=== PATIENT | male | born 1990 | race Caucasian/White ===

== ENCOUNTER 2019-12-26 14:25 | Emergency (ER) | payer BC ==
[2019-12-26] MEDS ORDERED: Ibuprofen 800 MG TAB ONE (14:47)
--- NOTE | 2019-12-26 16:35 | RAD ---
CHEST TWO VIEWS: Date: 12-26-2019 FINDINGS: The heart is normal in size and the lungs are clear. There is no sign of lobar infiltrate or pneumoth orax. No fluid was seen in the costophrenic angles. Minimal increase in markings behind the heart is probably just due to overlapping tissues. IMPRESSION: No acute findings. POS: HOME
== END 2019-12-26 15:10 | disposition home or self-care (01) ==
LOC: BURERS 14:25
DX: R07.89 Other chest pain (principal); F17.220 Nicotine dependence, chewing tobacco, uncomplicated
CPT/HCPCS: 71046

== ENCOUNTER 2019-12-31 02:56 | Emergency (ER) | payer BC ==
[2019-12-31] MEDS ORDERED: Diazepam 5 MG TAB ONE (03:09)
[2019-12-31] MEDS ORDERED: Guaifenesin DM 100-10/5 ML UDCUP ONE ×2 (03:10→03:12)
[2019-12-31] MEDS ORDERED: Ketorolac Tromethamine 60 MG/2 ML VIAL ONE (03:10)
[2019-12-31 03:32] LABS: Base Excess-Venous 3.1 mmol/L (-2.0 to 3.0); Bicarbonate (HCO3v) 29.1 mmol/L (22.0-28.0); Chloride 102 mmol/L (98-107); Hemoglobin - Calc 13.1 g/dL (14.0-18.0); Potassium 4.2 mmol/L (3.5-5.1); Sodium 142 mmol/L (138-145); T. Carbon Dioxide 30.6 mmol/L (22.0-28.0); vO2 Saturation-calc 41.6 % (60.0-85.0)
[2019-12-31 03:40] LABS: Anion Gap 12 mmol/L (10-20); BUN (Urea Nitrogen) 8 mg/dL (8.9-20.6); Calc. Creatinine Clearance 0 mL/min (70-130); Carbon Dioxide 28 mmol/L (22-29); Chloride 106 mmol/L (98-107); Eosinophils 2 % (0-10); Estimated GFR-MDRD Greater than 90; Glucose 107 mg/dL (70-105); Lymphocytes 22 % (21-51); MDiff Complete? YES; Mean Corpuscular Hemoglobin 28.3 pg (27.0-31.0); Mean Corpuscular Volume 83.3 fL (78.0-98.0); Monocytes 7 % (0-10); Neutrophil 68 % (42-75); Platelet Count 278 thou/uL (130-400); Platelet Morphology Comment Appears Adequate; Potassium 4.3 mmol/L (3.5-5.1); RBC Distribution Width 11.6 % (11.5-14.5); RBC Morphology Normal; Sodium 142 mmol/L (136-145); White Blood Cell (WBC) Count 11.9 thou/uL (4.8-10.8)
[2019-12-31] MEDS ORDERED: Acetaminophen 500 MG TAB ONE (03:41)
--- NOTE | 2019-12-31 07:39 | RAD ---
CHEST 2 VIEWS: Date: 12/31/2019 Comparison made with the 12/26/2019 study. The oscar seem a little more full today bilaterally than they were before. This raises the question of some adenopathy. There is no lobar infiltrate. There might be a little bit of perihilar streaking co mpared to before, but the finding is marginal. There are no effusions. The trachea is midline and the heart is normal in size. There is no vascular congestion or edema. IMPRESSION: Slight increase in hilar prominence over the interval and perhaps minimal perihilar streaking. Viral illnesses can cause this. Further follow-up will be needed depending upon the patient's symptoms. POS: HOME
== END 2019-12-31 03:53 | disposition home or self-care (01) ==
LOC: BURERS 02:56
DX: J98.8 Other specified respiratory disorders (principal); F17.220 Nicotine dependence, chewing tobacco, uncomplicated
CPT/HCPCS: 36415; 71046; 80048; 82330; 82803; 85025; 87804; 96372; J1885

== ENCOUNTER 2020-10-11 22:33 | Emergency (ER) | payer BC, SELFPAY ==
[2020-10-11] MEDS ORDERED: Ibuprofen 200 MG TAB ONE (22:56)
--- NOTE | 2020-10-12 08:00 | RAD ---
CHEST 2 VIEWS: Date: 10/11/2020 Comparison made with prior study of 12/31/2019. The heart size is unchanged. The right hemidiaphragm is slightly more elevated today than before. I u nderstand that there has been surgery and a history of a chest wall mass. No definite pathology is se en today, but it was not visible on the prior study either. In view of the history and symptoms, one might consider an elective CT to reexamine the thorax. At most, there may be some minor increased den sity in the right base just above the diaphragm, which could easily be scarring. No lobar infiltrates or effusions are seen. No obvious bony lesions apparent. IMPRESSION: No definite acute findings, other than slight elevation of the right hemidiaphragm compared to before . Can neither rule-in nor rule-out scarring or a minimal patchy right basilar infiltrate. Consider a follow-up CT exam if symptoms and clinical course dictate. POS: HOME
== END 2020-10-11 23:26 | disposition home or self-care (01) ==
LOC: BURERS 22:33
DX: S29.011A Strain of muscle and tendon of front wall of thorax, initial encounter (principal); S21.101A Unspecified open wound of right front wall of thorax without penetration into thoracic cavity, initial encounter; F17.220 Nicotine dependence, chewing tobacco, uncomplicated; E66.9 Obesity, unspecified
CPT/HCPCS: 71046

== ENCOUNTER 2022-10-11 10:38 | Emergency (ER) | payer SELFPAY | END 2022-10-11 11:18 | disposition home or self-care (01) | LOC: BURERS 10:38 | DX: H10.32 Unspecified acute conjunctivitis, left eye (principal); F17.220 Nicotine dependence, chewing tobacco, uncomplicated | CPT/HCPCS: 99282 ==

== ENCOUNTER 2023-10-12 16:54 | Emergency (ER) | payer OTHER, SELFPAY ==
[2023-10-12] MEDS ORDERED: cloNIDine 0.1 MG TAB ONE (17:10)
[2023-10-12 17:35] LABS: #Basophils 0.1 thou/uL (0.0-0.2); #Eosinphils 0.4 thou/uL (0.0-0.7); #Lymphocytes 2.6 thou/uL (1.20-3.40); #Monocytes 0.7 thou/uL (0.11-0.59); #Neutrophils 7.6 thou/uL (1.40-6.50); %Eosinophils 3.7 % (0.0-10.0); %Lymphocytes 22.9 % (21.0-51.0); %Monocytes 6.3 % (0.0-10.0); %Neutrophils 66.1 % (42.0-75.0); Hematocrit 41.4 % (42.0-52.0); Mean Corpuscular HGB CONC 33.8 g/dL (32.0-36.0); Mean Corpuscular Hemoglobin 27.8 pg (27.0-31.0); Mean Corpuscular Volume 82.5 fl (78.0-98.0); Mean Platelet Volume 7.1 fL (7.4-10.4); Platelet Count 281 10x3/uL (130-400); Red Blood Cell (RBC) Count 5.02 mill/uL (4.70-6.10); White Blood Cell (WBC) Count 11.5 10x3/uL (4.8-10.8)
[2023-10-12 17:53] LABS: ALT (SGPT) 64 U/L (8-55); AST (SGOT) 34 U/L (5-34); Albumin 3.9 g/dL (3.5-5.0); Alkaline Phosphatase 90 U/L (40-110); Anion Gap 13 mmol/L (10-20); BUN (Urea Nitrogen) 12 mg/dL (8.9-20.6); Bilirubin, Total 0.4 mg/dL (0.2-1.2); Calc. Creatinine Clearance 0 mL/min (70-130); Calcium 8.7 mg/dL (7.8-10.44); Carbon Dioxide 24 mmol/L (22-29); Chloride 106 mmol/L (98-107); Estimated GFR 109; Globulin 3.1 g/dL (2.4-3.5); Glucose 161 mg/dL (70-105); Potassium 3.2 mmol/L (3.5-5.1); Sodium 140 mmol/L (136-145)
== END 2023-10-12 18:27 | disposition home or self-care (01) ==
LOC: BURERS 16:54
DX: I10 Essential (primary) hypertension (principal); J20.9 Acute bronchitis, unspecified; F17.220 Nicotine dependence, chewing tobacco, uncomplicated
CPT/HCPCS: 36415; 80053; 85025; 93005